=== PATIENT | male | born 1995 | race Hispanic/Latino ===

== ENCOUNTER 2022-10-28 12:15 | Emergency (ER) | payer BC ==
[~2022-10-28] VITALS: Ht 172.7 cm; Wt 174.6 kg
[2022-10-28 12:15] VITALS: BP 182/107
[2022-10-28 12:48] LABS: BASOPHILS % (AUTO) 0.2 % (0.0-5.0); EOSINOPHILS % (AUTO) 1.1 % (0.0-8.0); HEMATOCRIT 43.3 % (42-54); LYMPHOCYTES % (AUTO) 32.8 % (21.0-51.0); MEAN CORPUSCULAR HEMOGLOBIN 28.1 pg (27.0-33.0); MEAN CORPUSCULAR HGB CONC 32.8 g/dL (32.0-36.0); MEAN CORPUSCULAR VOLUME 85.7 fL (79-99); MONOCYTES % (AUTO) 4.1 % (3.0-13.0); NEUTROPHILS % (AUTO) 61.5 % (40.0-77.0); PLATELET COUNT (AUTO) 285 K/uL (130-400); RED BLOOD CELL COUNT(AUTO) 5.05 MIL/uL (4.50-6.20); RED CELL DISTRIBUTION WIDTH 13.5 % (11.0-15.5); WHITE BLOOD COUNT (AUTO) 9.3 K/uL (4.8-10.8)
[2022-10-28 13:02] LABS: ALBUMIN 3.7 g/dL (3.5-5.0); CREATININE 0.9 mg/dL (0.5-1.5); POTASSIUM 3.7 mmol/L (3.5-5.1); TOTAL PROTEIN, SERUM 7.9 g/dL (6.0-8.3)
[2022-10-28 13:16] LABS: B-TYPE NATRIURETIC PEPTIDE 7 pg/mL (0-100)
[2022-10-28] MEDS ORDERED: FAMO-136 PO (15:45)
== END 2022-10-28 16:15 | disposition home or self-care (01) ==
LOC: EDH 12:15
DX: R42 Dizziness and giddiness (principal); K21.9 Gastro-esophageal reflux disease without esophagitis; R03.0 Elevated blood-pressure reading, without diagnosis of hypertension; R73.9 Hyperglycemia, unspecified
CPT/HCPCS: 36415; 71045; 80053; 83880; 84484; 85025; 93005

== ENCOUNTER 2022-10-31 09:55 | Emergency (ER) | payer BC ==
[~2022-10-31] VITALS: Ht 175.3 cm; Wt 170.1 kg
[~2022-10-31 09:55] MED LIST: FAMO-136 PO
[2022-10-31 10:29] LABS: BASOPHILS % (AUTO) 0.2 % (0.0-5.0); HEMATOCRIT 42.9 % (42-54); LYMPHOCYTES % (AUTO) 25.8 % (21.0-51.0); MEAN CORPUSCULAR HEMOGLOBIN 28.6 pg (27.0-33.0); MEAN CORPUSCULAR HGB CONC 33.6 g/dL (32.0-36.0); MEAN CORPUSCULAR VOLUME 85.3 fL (79-99); MONOCYTES % (AUTO) 4.6 % (3.0-13.0); NEUTROPHILS % (AUTO) 68.1 % (40.0-77.0); PLATELET COUNT (AUTO) 286 K/uL (130-400); RED BLOOD CELL COUNT(AUTO) 5.03 MIL/uL (4.50-6.20); RED CELL DISTRIBUTION WIDTH 13.4 % (11.0-15.5); WHITE BLOOD COUNT (AUTO) 8.9 K/uL (4.8-10.8)
[2022-10-31 10:47] LABS: INR 0.93 (0.85-1.15); PROTHROMBIN TIME 10.2 SEC (9.6-11.6)
[2022-10-31 10:48] LABS: PARTIAL THROMBOPLASTIN TIME 29.3 SEC (26.3-35.5)
[2022-10-31 11:30] VITALS: BP 138/73
[2022-10-31] MEDS ORDERED: IOHEXOL-350 75 ML VIAL IV ONE (13:34)
== END 2022-10-31 16:06 | disposition home or self-care (01) ==
LOC: EDH 09:55
DX: R06.09 Other forms of dyspnea (principal); F17.200 Nicotine dependence, unspecified, uncomplicated; Z20.822 Contact with and (suspected) exposure to COVID-19; Z68.43 Body mass index [BMI] 50.0-59.9, adult
CPT/HCPCS: 99285; 93970; 71270; 71045; 87635; 84484; 80048; 85025; 85378; 85610; 85730; 36415; 93005; C9803; Q9967

== ENCOUNTER 2022-11-01 18:37 | Emergency (ER) | payer BC, OTHER ==
[~2022-11-01] VITALS: Ht 175.3 cm; Wt 170.1 kg
[2022-11-01 19:19] VITALS: BP 142/53
== END 2022-11-01 20:06 | disposition left against medical advice (07) ==
LOC: EDH 18:37
DX: R06.02 Shortness of breath (principal); Z53.21 Procedure and treatment not carried out due to patient leaving prior to being seen by health care provider
CPT/HCPCS: 99281

== ENCOUNTER 2023-04-20 18:42 | Emergency (ER) | payer OTHER ==
[~2023-04-20] VITALS: Ht 175.3 cm; Wt 166.9 kg
[2023-04-20 18:45] VITALS: BP 143/88; PULSE 104; RESP 18
[2023-04-20 22:00] LABS: BASOPHILS # (AUTO) 0.02 K/uL (0.00-0.20); BASOPHILS % (AUTO) 0.2 % (0.0-5.0); EOSINOPHILS # (AUTO) 0.04 K/uL (0.00-0.70); EOSINOPHILS % (AUTO) 0.4 % (0.0-8.0); HEMATOCRIT 44.7 % (42-54); IMMATURE GRANULOCYTE ABSOLUTE 0.04 K/uL (0-1); LYMPHOCYTES # (AUTO) 2.7 K/uL (1.0-4.8); LYMPHOCYTES % (AUTO) 24.7 % (21.0-51.0); MEAN CORPUSCULAR HEMOGLOBIN 28.7 pg (27.0-33.0); MEAN CORPUSCULAR HGB CONC 33.3 g/dL (32.0-36.0); MONOCYTES # (AUTO) 0.6 K/uL (0.1-1.0); MONOCYTES % (AUTO) 5.1 % (3.0-13.0); NEUTROPHILS # (AUTO) 7.4 K/uL (1.8-7.7); NEUTROPHILS % (AUTO) 69.2 % (40.0-77.0); PLATELET COUNT (AUTO) 334 K/uL (130-400); RED CELL DISTRIBUTION WIDTH 13.6 % (11.0-15.5); WHITE BLOOD COUNT (AUTO) 10.7 K/uL (4.8-10.8)
[2023-04-20 22:12] LABS: CREATININE 0.8 mg/dL (0.5-1.5); POTASSIUM 3.7 mmol/L (3.5-5.1)
[2023-04-20 22:17] LABS: ALBUMIN 3.8 g/dL (3.5-5.0); BILIRUBIN,TOTAL 0.3 mg/dL (0.2-1.0); TOTAL PROTEIN, SERUM 8.6 g/dL (6.0-8.3)
[2023-04-20] MEDS ORDERED: BUTA-271 PO (22:56)
[2023-04-20 23:05] LABS: ERYTHROCYTE SEDIMENTATION RATE 30 MM/HR (0-15)
== END 2023-04-20 23:02 | disposition home or self-care (01) ==
LOC: EDH 18:42
DX: G44.209 Tension-type headache, unspecified, not intractable (principal); E66.9 Obesity, unspecified; F17.200 Nicotine dependence, unspecified, uncomplicated; Z98.890 Other specified postprocedural states
CPT/HCPCS: 36415; 70450; 80053; 85025; 85651

== ENCOUNTER 2023-05-31 14:28 | Emergency (ER) | payer OTHER ==
[~2023-05-31] VITALS: Ht 172.7 cm; Wt 158.8 kg
[~2023-05-31 14:28] MED LIST changes: +BUTA-271 PO
[2023-05-31 14:36] VITALS: BP 140/88; PULSE 93; RESP 18
[2023-05-31 15:02] LABS: BASOPHILS # (AUTO) 0.02 K/uL (0.00-0.20); BASOPHILS % (AUTO) 0.3 % (0.0-5.0); EOSINOPHILS # (AUTO) 0.06 K/uL (0.00-0.70); EOSINOPHILS % (AUTO) 0.8 % (0.0-8.0); HEMATOCRIT 44.8 % (42-54); IMMATURE GRANULOCYTE ABSOLUTE 0.02 K/uL (0-1); LYMPHOCYTES # (AUTO) 2.2 K/uL (1.0-4.8); LYMPHOCYTES % (AUTO) 27.7 % (21.0-51.0); MEAN CORPUSCULAR HEMOGLOBIN 28.3 pg (27.0-33.0); MEAN CORPUSCULAR HGB CONC 33.5 g/dL (32.0-36.0); MEAN CORPUSCULAR VOLUME 84.5 fL (79-99); MONOCYTES # (AUTO) 0.4 K/uL (0.1-1.0); MONOCYTES % (AUTO) 5.6 % (3.0-13.0); NEUTROPHILS # (AUTO) 5.1 K/uL (1.8-7.7); NEUTROPHILS % (AUTO) 65.3 % (40.0-77.0); PLATELET COUNT (AUTO) 286 K/uL (130-400); RED CELL DISTRIBUTION WIDTH 13.7 % (11.0-15.5); WHITE BLOOD COUNT (AUTO) 7.8 K/uL (4.8-10.8)
[2023-05-31 15:48] LABS: CREATININE 0.9 mg/dL (0.5-1.5); POTASSIUM 3.7 mmol/L (3.5-5.1)
[2023-05-31 15:55] LABS: BILIRUBIN,TOTAL 0.6 mg/dL (0.2-1.0); TOTAL PROTEIN, SERUM 8.5 g/dL (6.0-8.3)
[2023-05-31 17:12] LABS: APPEARANCE,URINE CLEAR (CLEAR); BILIRUBIN,URINE NEGATIVE (NEGATIVE); COLOR,URINE COLORLESS (YELLOW); GLUCOSE, URINE (UA) NEGATIVE (NEGATIVE); KETONES,URINE 5 mg/dL (NEGATIVE); LEUKOCYTE ESTERASE ,URINE NEGATIVE Leu/uL (NEGATIVE); NITRATE,URINE NEGATIVE (NEGATIVE); OCCULT BLOOD,URINE NEGATIVE (NEGATIVE); PH,URINE 5.5 (5.0-8.0); PROTEIN,URINE NEGATIVE (NEGATIVE); UROBILINOGEN,URINE 0.2 mg/dL (0.2-1.0)
[2023-05-31 17:13] LABS: ADD UA MICROSCOPIC NO
[2023-05-31 17:45] LABS: HIV 1&2 ANTIBODY Non-Reactive (Negative); HIV-1 p24 Antigen Non-Reactive (Negative)
[2023-05-31] MEDS ORDERED: NYST5ORA7 PO (17:47)
[2023-05-31] MEDS ORDERED: HYDR-3421 PO (17:47)
== END 2023-05-31 18:51 | disposition home or self-care (01) ==
LOC: EDH 14:28
DX: F41.9 Anxiety disorder, unspecified (principal); B37.0 Candidal stomatitis; K21.9 Gastro-esophageal reflux disease without esophagitis; F17.200 Nicotine dependence, unspecified, uncomplicated
CPT/HCPCS: 36415; 80053; 81003; 85025; 86701; 87390; 93005

== ENCOUNTER 2023-07-02 02:23 | Emergency (ER) | payer BC, OTHER ==
[~2023-07-02] VITALS: Ht 175.3 cm; Wt 156.9 kg
[~2023-07-02 02:23] MED LIST changes: +HYDR-3421 PO; +NYST5ORA7 PO
[2023-07-02 02:24] VITALS: BP 164/92; PULSE 93; RESP 18
== END 2023-07-02 03:33 | disposition left against medical advice (07) ==
LOC: EDH 02:23
DX: R42 Dizziness and giddiness (principal); Z53.21 Procedure and treatment not carried out due to patient leaving prior to being seen by health care provider

== ENCOUNTER 2024-07-28 20:23 | Inpatient (IN) | payer SELFPAY ==
[~2024-07-28] VITALS: Ht 175.3 cm; Wt 161.1 kg
[~2024-07-28 20:23] MED LIST changes: +NYST100033 PO; -NYST5ORA7 PO
--- NOTE | 2024-07-28 20:39 | ERN ---
General Chief Complaint: Upper Extremity Pain/Injury Stated Complaint: C/O PAIN TO ARMS AFTER LIFTING WEIGHTS. Time Seen by MD: 20:25 Source: patient History of Present Illness Initial Comments Patient is a 29-year-old male coming in with body aches. Per patient he does have a history of rhabdomyolysis and was diagnosed that the last year. Patient states that he has been working out intensely incised flowing body aches. Decided to follow up to be evaluated. Pain is localized to the upper extremities. Allergies: Coded Allergies: No Known Allergies (Unverified Allergy, Unknown, 10/31/22) Home Meds Active Scripts Hydroxyzine HCl (Hydroxyzine HCl) 25 Mg Tablet, 25 MG PO TID PRN for BEFORE WOUND VAC, #9 TAB Prov:JACOB PALOMARES V [facility] 05/31/23 Nystatin (Nystatin) 100,000 Unit/Ml Oral.susp, 090450 UNIT PO QID, #150 ML Prov:JACOB PALOMARES V [employer] 05/31/23 Butalb/Acetaminophen/Caffeine (Esgic 50-325-40 mg Tablet) 50 Mg-325 Mg-40 Mg Tablet, 2 EACH PO Q4HPRN PRN for HEADACHE, #20 TAB 2 tablets every 4 hours, maximum 6 tablets daily. Prov:LUCIO WHITFIELD MA[employer] 04/20/23 Famotidine (Pepcid) 20 Mg Tablet, 20 MG PO BIDAC, #30 TAB Prov:CORTEZ BAILON PAC 10/28/22 Past Medical History Past Medical History: No Pertinent History Past Surgical History: None Social History Social History: Smokers, ETOH ROS Dictation CONSTITUTIONAL: No chills, no fever, no weakness, no diaphoresis, malaise. HEAD/FACE: No signs of trauma. EENT: No eye pain, no blurred vision, no tearing, no double vision, no ear pain, no ear discharge, no nose pain, no nasal congestion, no throat pain, no throat swelling, no mouth pain. RESPIRATORY: No cough, no orthopnea, no SOB, no stridor, no wheezing. CARDIOVASCULAR: No chest pain, no edema, no palpitations, no syncope. GASTROINTESTINAL/ABDOMINAL: No abdominal pain, no constipation, no diarrhea, no nausea, no vomiting. GENITOURINARY: No abnormal discharge, no dysuria, no frequent urination, no hematuria. No complaints of pain in the genitals. MUSCULOSKELETAL: No back pain, no gout, no joint pain, no joint swelling, no muscle pain, no muscle stiffness, no neck pain. INTEGUMENTARY: No change in color, no change in hair/nails, no dryness, no lesion, no lumps, no rash. NEUROLOGICAL/PSYCH: No anxiety, not depressed, no emotional problem, no headache, no numbness, no pre-existing deficit, no history of seizures, no tremors, no weakness. HEMATOLOGIC/LYMPHATIC: Not anemic, no history of blood clots, no apparent bleeding, no bruising, glands not swollen. All Systems Negative, Except as Noted. Physical Exam Physical Exam Dictation VITAL SIGNS: Reviewed. GENERAL APPEARANCE: Alert, oriented x3, no acute distress, obese. HEAD AND FACE: Non-traumatic. EYES: PERRL, pink conjunctivas, eyelid no trauma, anterior chamber clear. EARS: Pinnas intact and no signs of trauma or erythema. Ear canals clear and no discharge. TMs no erythema. NOSE: No discharge, no bleeding. OROPHARYNX: Mouth normal, teeth no caries, tongue pink. Pharynx clear, no erythema. Tonsils no exudates, no abscesses noted. Mucous membrane moist. NECK: Supple, non-tender, no thyromegaly, no masses, no JVD, no bruits. BREAST: Deferred. CHEST: No tenderness, no crepitus, no paradoxical movement, no retractions. LUNGS: Clear, well-ventilated, symmetric, no rales, no wheezing, no rhonchi, no stridor, good breath sounds bilaterally. HEART: Regular rate, regular rhythm, no murmur, no gallops. VASCULAR: No peripheral edema. ABDOMEN: Soft, positive bowel sounds, nondistended, no guarding, nontender, no rebound, no masses no hepatomegaly, no splenomegaly, no Davenport's sign, no hernias. RECTAL: Deferred. GENITAL: Deferred. NEUROLOGICAL: Normal speech, gross motor function intact, gross sensory function intact. MUSCULOSKELETAL: Neck nontender, full range of motion, back nontender, full range of motion. EXTREMITIES: Nontender, full range of motion. SKIN: Color pink, dry, no turgor, no rash, no lacerations, no abrasions, no contusions. LYMPHATICS: Deferred. Results Laboratory and Microbiology Lab and Micro Result Laboratory Tests Test 07/28/24 21:07 07/28/24 22:12 07/28/24 23:33 White Blood Count 7.6 K/uL (4.8-10.8) Red Blood Count 5.16 MIL/uL (4.50-6.20) Hemoglobin 14.7 g/dL (14.0-18.0) Hematocrit 43.7 % (42-54) Mean Corpuscular Volume 84.7 fL (79-99) Mean Corpuscular Hemoglobin 28.5 pg (27.0-33.0) Mean Corpuscular Hemoglobin Concent 33.6 g/dL (32.0-36.0) Red Cell Distribution Width 13.8 % (11.0-15.5) Platelet Count 327 K/uL (130-400) Mean Platelet Volume 9.3 fL (7.5-10.5) Immature Granulocyte % (Auto) 0.3 % (0-1) Neutrophils (%) (Auto) 60.9 % (40.0-77.0) Lymphocytes (%) (Auto) 32.3 % (21.0-51.0) Monocytes (%) (Auto) 5.1 % (3.0-13.0) Eosinophils (%) (Auto) 1.3 % (0.0-8.0) Basophils (%) (Auto) 0.1 % (0.0-5.0) Neutrophils # (Auto) 4.6 K/uL (1.8-7.7) Lymphocytes # (Auto) 2.5 K/uL (1.0-4.8) Monocytes # (Auto) 0.4 K/uL (0.1-1.0) Eosinophils # (Auto) 0.10 K/uL (0.00-0.70) Basophils # (Auto) 0.01 K/uL (0.00-0.20) Absolute Immature Granulocyte (auto 0.02 K/uL (0-1) Nucleated Red Blood Cells 0.0 % (0.0-0.19) Sodium Level 141 mmol/L (136-145) Potassium Level 3.9 mmol/L (3.5-5.1) Chloride Level 105 mmol/L (101-111) Carbon Dioxide Level 32 mmol/L (21-32) Blood Urea Nitrogen 10 mg/dL (7-18) Creatinine 1.1 mg/dL (0.5-1.3) Glomerular Filtration Rate Calc 92 mL/min (>90) Random Glucose 110 mg/dL (70-105) H Total Calcium 8.6 mg/dL (8.5-10.1) Total Creatine Kinase 1145 U/L (21-232) *H 1100 U/L (21-232) *H Urine Color LIGHT-YELLOW (YELLOW) Urine Appearance CLEAR (CLEAR) Urine pH 6.0 (5.0-8.0) Urine Specific [place] 1.027 (1.001-1.031) Urine Protein 10 mg/dL (NEGATIVE) H Urine Glucose (UA) NEGATIVE mg/dL (NEGATIVE) Urine Ketones NEGATIVE mg/dL (NEGATIVE) Urine Occult Blood NEGATIVE (NEGATIVE) Urine Nitrate NEGATIVE (NEGATIVE) Urine Bilirubin NEGATIVE mg/dL (NEGATIVE) Urine Urobilinogen 0.2 mg/dL (0.2-1.0) Urine Leukocyte Esterase NEGATIVE Morgan/uL Urine RBC 2-5 /HPF (0-1) H Urine WBC 0-1 /HPF (0-1) Urine Bacteria None /HPF (None Seen) Urine Opiates Screen NEGATIVE (NEGATIVE) Urine Barbiturates Screen NEGATIVE (NEGATIVE) Urine Phencyclidine Screen NEGATIVE (NEGATIVE) Urine Amphetamines Screen NEGATIVE (NEGATIVE) Urine Benzodiazepines Screen NEGATIVE (NEGATIVE) Urine Cocaine Screen NEGATIVE (NEGATIVE) Urine Marijuana (THC) Screen NEGATIVE (NEGATIVE) Labs Reviewed?: Yes MDM MDM: Differential diagnosis: Rhabdomyolysis, elevated CK, dehydration, Rationale: Tests considered and ordered secondary to shared decision making include: labs, ECG and radiology Previous outside records reviewed: Old ER visits. Risk of complication and/or morbidity or mortality of patient management: None Medications-Per medication reconciliation Need for hospitalization: Patient does meet criteria for hospitalization. Need for emergency major/minor surgery: No There are no social concerns with this patient. Prescription drug management Prescriptions will include symptomatic care Patient's prior external medical records from other ER visits were reviewed by me as indicated. Prior testing and results from previous visits were reviewed. Prior tests were taken into account with medical decision making and resource utilization, independent historian/historians were used to obtain complete medical history. I independently interpreted the test that were performed, results were reviewed by me and considered findings on radiology if ordered. Medical management and examination interpretation discussions were had by me with other qualified healthcare professionals as indicated for the patient's care. Patient is a 29-year-old male coming in to be evaluated for body aches. For patient he has been exercising recently and presented with body aches and muscle stiffness. Laboratory workup elevated CK consistent with rhabdomyolysis. Patient will be admitted under the care of Dr. Diego for ongoing management. ED Course Orders Procedure Category Date Status Time Cbc With Differential LAB 07/28/24 Complete 20:27 Basic Metabolic Panel LAB 07/28/24 Complete 20:27 Creatine Kinase, Total LAB 07/28/24 Complete 20:27 0.9%Nacl 1000ml (Ns PHA 07/28/24 Complete 1000ml) 20:30 Urinalysis LAB 07/28/24 Complete W/Microscopic 22:00 Drug Screen Urine LAB 07/28/24 Complete 22:00 0.9%Nacl 1000ml (Ns PHA 07/28/24 Complete 1000ml) 22:30 Creatine Kinase, Total LAB 07/28/24 Complete 22:50 Current Medications Medications (Trade) Dose Ordered Sig/Kristi Route PRN Reason Start Time Stop Time Status Last Admin Dose Admin Sodium Chloride 1,000 ml @ 0 mls/hr ONCE ONCE IV 07/28/24 20:30 07/28/24 20:33 DC 07/28/24 22:18 Sodium Chloride 1,000 ml @ 0 mls/hr ONCE ONCE IV 07/28/24 22:30 07/28/24 22:31 DC 07/28/24 23:03 Vital Signs Date Time Temp Pulse Resp B/P (MAP) Pulse Ox O2 Delivery O2 Flow Rate FiO2 07/28/24 22:10 98.2 78 18 145/87 99 Room Air* 0 21 07/28/24 20:24 98.2 95 20 144/87 96 Room Air Critical Care Note Comments Critical Care Procedure Note Authorized and Performed by: me Total critical care time: Approximately 36 minutes Due to a high probability of clinically significant, life threatening deterioration, the patient required my highest level of preparedness to intervene emergently and I personally spent this critical care time directly and personally managing the patient. This critical care time included obtaining a history; examining the patient; pulse oximetry; ordering and review of studies; arranging urgent treatment with development of a management plan; evaluation of patient's response to treatment; frequent reassessment; and, discussions with other providers. This critical care time was performed to assess and manage the high probability of imminent, life-threatening deterioration that could result in multi-organ failure. It was exclusive of separately billable procedures and treating other patients and teaching time. Please see MDM section and the rest of the note for further information on patient assessment and treatment. DX & DISP Disposition: Inpatient Decision to Admit Time: 00:34 Departure Impression: Primary Impression: Rhabdomyolysis Condition: Stable Referrals: SELF,REFERRAL (PCP) KWAN PERDOMO MD Jul 28, 2024 20:39
[2024-07-28 21:14] LABS: BASOPHILS # (AUTO) 0.01 K/uL (0.00-0.20); BASOPHILS % (AUTO) 0.1 % (0.0-5.0); EOSINOPHILS % (AUTO) 1.3 % (0.0-8.0); HEMATOCRIT 43.7 % (42-54); IMMATURE GRANULOCYTE ABSOLUTE 0.02 K/uL (0-1); LYMPHOCYTES # (AUTO) 2.5 K/uL (1.0-4.8); LYMPHOCYTES % (AUTO) 32.3 % (21.0-51.0); MEAN CORPUSCULAR HEMOGLOBIN 28.5 pg (27.0-33.0); MEAN CORPUSCULAR HGB CONC 33.6 g/dL (32.0-36.0); MEAN CORPUSCULAR VOLUME 84.7 fL (79-99); MONOCYTES # (AUTO) 0.4 K/uL (0.1-1.0); MONOCYTES % (AUTO) 5.1 % (3.0-13.0); NEUTROPHILS # (AUTO) 4.6 K/uL (1.8-7.7); NEUTROPHILS % (AUTO) 60.9 % (40.0-77.0); PLATELET COUNT (AUTO) 327 K/uL (130-400); RED BLOOD CELL COUNT(AUTO) 5.16 MIL/uL (4.50-6.20); RED CELL DISTRIBUTION WIDTH 13.8 % (11.0-15.5); WHITE BLOOD COUNT (AUTO) 7.6 K/uL (4.8-10.8)
[2024-07-28 21:32] LABS: CREATININE 1.1 mg/dL (0.5-1.3); POTASSIUM 3.9 mmol/L (3.5-5.1)
--- NOTE | 2024-07-28 22:05 | NUR ---
ASSUMED PT CARE AT THIS TIME
[2024-07-28] MEDS: 0.9%NACL 1000ML 1,000 ML IV ONE ×2 (22:18→23:03)
[2024-07-28 22:30] LABS: APPEARANCE,URINE CLEAR (CLEAR); BILIRUBIN,URINE NEGATIVE (NEGATIVE); COLOR,URINE LIGHT-YELLOW (YELLOW); GLUCOSE, URINE (UA) NEGATIVE (NEGATIVE); KETONES,URINE NEGATIVE (NEGATIVE); LEUKOCYTE ESTERASE ,URINE NEGATIVE Leu/uL (NEGATIVE); NITRATE,URINE NEGATIVE (NEGATIVE); OCCULT BLOOD,URINE NEGATIVE (NEGATIVE); PROTEIN,URINE 10 mg/dL (NEGATIVE); UROBILINOGEN,URINE 0.2 mg/dL (0.2-1.0)
[2024-07-28 22:31] LABS: MUCUS,URINE RARE LPF (None Seen); WBC,URINE 0-1 /HPF (0-1)
[2024-07-28 22:37] LABS: AMPHET/METH SCREEN,URINE NEGATIVE (NEGATIVE); BARBITURATE SCREEN, URINE NEGATIVE (NEGATIVE); BENZODIAZEPINES SCREEN,URINE NEGATIVE (NEGATIVE); CANNABINOID SCREEN,URINE NEGATIVE (NEGATIVE); COCAINE SCREEN,URINE NEGATIVE (NEGATIVE); OPIATE SCREEN,URINE NEGATIVE (NEGATIVE); PHENCYCLIDINE SCREEN,URINE NEGATIVE (NEGATIVE)
[2024-07-29] MEDS ORDERED: ondanSETRON 4MG TABLET PO PRN (01:00)
[2024-07-29] MEDS: 0.9%NACL 1000ML 1,000 ML IV SCH (01:23)
[2024-07-29 07:36] LABS: CREATININE 0.7 mg/dL (0.5-1.3); POTASSIUM 3.5 mmol/L (3.5-5.1)
--- NOTE | 2024-07-29 07:44 | NUR ---
CK-1244, PRIMARY RN MADE AWARE
--- NOTE | 2024-07-29 11:21 | NUR ---
ELEVATED CK DR ATKINSON NOTIFIED OF CK 1244,CONTINUE WITH N/S 150 ML/HR.
[2024-07-29] MEDS: acetaMINOPHEN 325 MG TAB PO PRN (13:30)
--- NOTE | 2024-07-29 15:00 | NUR ---
DR ATKINSON AT BEDSIDE.
--- NOTE | 2024-07-29 18:41 | NUR ---
PAIN 8/10.PT DECLINED PAINRELIEF.
[2024-07-29] MEDS: traMADol HCL 50 MG TABLET PO PRN (20:31)
[2024-07-30] VITALS (8 sets, daily range): BP systolic 109–146; BP diastolic 58–89; PULSE 71–85; RESP 18–20; TEMP 97.6–98.1; O2SAT 97
--- NOTE | 2024-07-30 02:03 | NUR ---
REPORT GIVEN TO SHANIQUE RASHEED
--- NOTE | 2024-07-30 03:36 | HP ---
DATE OF ADMISSION: 07/28/2024 PRESENTING COMPLAINT: Generalized body weakness and pain. HISTORY OF PRESENT ILLNESS: A 29-year-old male with morbid obesity and rhabdomyolysis presented to hospital with generalized body ache and weakness. The patient had similar symptoms about a year ago and was found to have rhabdomyolysis. The patient claims he has been . In the ER, the patient was found with CPK of 1145. The patient has been started on IV fluid. No fever or chills. Renal function came back normal. No diarrhea, no abdominal pain. PAST MEDICAL HISTORY: * Rhabdomyolysis. * Morbid obesity. PAST SURGICAL HISTORY: None. ALLERGIES: No known drug allergy. HOME MEDICATIONS: None. SOCIAL HISTORY: Positive for chronic tobacco use, no illicit drug use. FAMILY HISTORY: Noncontributory. REVIEW OF SYSTEMS: Greater than 10 systems were reviewed, negative except as documented above. PHYSICAL EXAMINATION: GENERAL: Young male, awake. VITAL SIGNS: Temperature 98.2, pulse 72, respiratory rate 18, BP 136/73. EYES: No icterus. Pupils equal and reactive. HENT: No oral thrush seen. Moist oral mucosa. NECK: Supple, no JVD or thyromegaly. LUNGS: Good air entry. No rales, no rhonchi. CARDIOVASCULAR: S1, S2 regular. No murmur heard. ABDOMEN: Soft, nontender. Bowel sound is present. CENTRAL NERVOUS SYSTEM: Awake, alert and oriented x3. No focal deficits. SKIN: No rashes, no itchiness. LYMPHATIC: No peripheral lymphadenopathy. MUSCULOSKELETAL: No joint swelling, erythema or tenderness. LABORATORY DATA: CPK 1145. WBC 7.6, hemoglobin 14.7, platelets 227. ASSESSMENT: A 29-year-old male presented with body ache. Current problems include: * Rhabdomyolysis. * Morbid obesity. PLAN: * The patient admitted to medical floor. * The patient will be placed on IV fluid. * Tylenol as needed for pain. * Zofran as needed for nausea and vomiting. * Monitor electrolytes. * The patient will be followed up closely. TID: [id number] RECEIPT: [id number]
[2024-07-30 07:32] LABS: CREATININE 0.7 mg/dL (0.5-1.3); POTASSIUM 3.6 mmol/L (3.5-5.1)
--- NOTE | 2024-07-30 07:45 | NUR ---
DCP: HOME Sw visited with pt who states he lives at home with his mother Argelia Lopez [phone]. Pt states he is currently unemployed while is "recovering from anxiety". Pt states he has had a tough time related to his "bad behaviors and choices" but he is now going in the right direction now that he has found God and is on a spiritual journey. "Sherwin is purifying my life". Pt denies need for psych care because he has God in his life. Pt states mother has been supportive emotionally and financially during this time and he hopes to return to work soon. Pt states he is independent of all his daily activities of life, uses no DME or in home care services. PCP is Jeanna Doyle and uses [facility] for rx. Pt denies dc needs and will return home at pa. Addendum: 07/30/24 at 0752 by KEVIN WEVAER SS Amended: Links added.
--- NOTE | 2024-07-30 07:53 | NUR ---
CRITICAL RESULTS LAB CALLED IN REPORTING CRITICAL RESULTS OF CK TOTAL OF 4488. NOTIFIED PRIMARY NURSE REGARDING RESULTS.
--- NOTE | 2024-07-30 13:57 | PN ---
INFECTIOUS DISEASE PROGRESS NOTE Date of Service: Jul 30, 2024 SUBJECTIVE: This is a 29-year-old male patient who was admitted with chief complaint of generalized body weakness and pain. Reported that he had just started working out again by running on the treadmill. On admission to the ER patient was found with a CK level of 1145. Today patient was seen and examined at bedside in room 313. No reports of nausea or vomiting. The CK level went up higher to 4488 this morning. Denying nausea or vomiting. No chest pain. No dyspnea observe. Will increase IV fluids to 200 mL/hour. We will recheck the CK level in a.m. and continue to monitor. PHYSICAL EXAM EYES: Anicteric. Pupils equal and reactive. HENT: No oral thrush seen, moist Oral mucosa. NECK: Supple, no JVD or thyromegaly. LUNGS: Good air entry. No rales, no rhonchi. CARDIOVASCULAR: S1, S2 regular. No murmur heard. ABDOMEN: Soft, non tender, bowel sounds present, no organomegaly. CENTRAL NERVOUS SYSTEM: Awake, alert, oriented x 3. SKIN: No rashes, no swelling. LYMPHATICS: No peripheral lymphadenopathy. MUSCULOSKELETAL: No joint swelling, erythema or tenderness. EXTREMITIES: No cyanosis or clubbing. BACK: No deformity, no pressure ulcer. GENITOURINARY: No dysuria or hematuria. Vital Sign (Last 12 Hours) 07/30/24 07/30/24 07/30/24 07/30/24 02:10 02:15 02:20 04:00 Temp 98.4 97.9 97.5 Pulse 84 72 77 Resp 18 19 18 B/P (MAP) 128/78 136/58 109/60 Pulse Ox 95 97 98 98 O2 Delivery Room Air* Room Air* Room Air Room Air O2 Flow Rate 0 0 FiO2 21 21 07/30/24 07/30/24 08:00 12:00 Temp 97.7 98.1 Pulse 75 71 Resp 18 20 B/P (MAP) 139/89 126/72 Pulse Ox 98 O2 Delivery Room Air Room Air Intake & Output (last 24hrs) 07/29/24 07/29/24 07/30/24 15:00 23:00 07:00 Intake Total 150.0 ml Balance 150.0 ml LABS: Laboratory: Test 07/30/24 06:50 07/28/24 22:12 07/28/24 21:07 Range/Units Sodium Level 139 136-145 mmol/L Potassium Level 3.6 3.5-5.1 mmol/L Chloride Level 106 101-111 mmol/L Carbon Dioxide Level 27 21-32 mmol/L Blood Urea Nitrogen 7 7-18 mg/dL Creatinine 0.7 0.5-1.3 mg/dL Glomerular Filtration Rate Calc 126 >90 mL/min Random Glucose 88 70-105 mg/dL Total Calcium 8.1 L 8.5-10.1 mg/dL Total Creatine Kinase 4488 #*H 21-232 U/L Urine Color LIGHT-YELLOW YELLOW Urine Appearance CLEAR CLEAR Urine pH 6.0 5.0-8.0 Urine Specific [place] 1.027 1.001-1.031 Urine Protein 10 H NEGATIVE mg/dL Urine Glucose (UA) NEGATIVE NEGATIVE mg/dL Urine Ketones NEGATIVE NEGATIVE mg/dL Urine Occult Blood NEGATIVE NEGATIVE Urine Nitrate NEGATIVE NEGATIVE Urine Bilirubin NEGATIVE NEGATIVE mg/dL Urine Urobilinogen 0.2 0.2-1.0 mg/dL Urine Leukocyte Esterase NEGATIVE NEGATIVE Morgan/uL Urine RBC 2-5 H 0-1 /HPF Urine WBC 0-1 0-1 /HPF Urine Bacteria None None Seen /HPF Urine Opiates Screen NEGATIVE NEGATIVE Urine Barbiturates Screen NEGATIVE NEGATIVE Urine Phencyclidine Screen NEGATIVE NEGATIVE Urine Amphetamines Screen NEGATIVE NEGATIVE Urine Benzodiazepines Screen NEGATIVE NEGATIVE Urine Cocaine Screen NEGATIVE NEGATIVE Urine Marijuana (THC) Screen NEGATIVE NEGATIVE White Blood Count 7.6 4.8-10.8 K/uL Red Blood Count 5.16 4.50-6.20 MIL/uL Hemoglobin 14.7 14.0-18.0 g/dL Hematocrit 43.7 42-54 % Mean Corpuscular Volume 84.7 79-99 fL Mean Corpuscular Hemoglobin 28.5 27.0-33.0 pg Mean Corpuscular Hemoglobin Concent 33.6 32.0-36.0 g/dL Red Cell Distribution Width 13.8 11.0-15.5 % Platelet Count 327 130-400 K/uL Mean Platelet Volume 9.3 7.5-10.5 fL Immature Granulocyte % (Auto) 0.3 0-1 % Neutrophils (%) (Auto) 60.9 40.0-77.0 % Lymphocytes (%) (Auto) 32.3 21.0-51.0 % Monocytes (%) (Auto) 5.1 3.0-13.0 % Eosinophils (%) (Auto) 1.3 0.0-8.0 % Basophils (%) (Auto) 0.1 0.0-5.0 % Neutrophils # (Auto) 4.6 1.8-7.7 K/uL Lymphocytes # (Auto) 2.5 1.0-4.8 K/uL Monocytes # (Auto) 0.4 0.1-1.0 K/uL Eosinophils # (Auto) 0.10 0.00-0.70 K/uL Basophils # (Auto) 0.01 0.00-0.20 K/uL Absolute Immature Granulocyte (auto 0.02 0-1 K/uL Nucleated Red Blood Cells 0.0 0.0-0.19 % ASSESSMENT: Rhabdomyolysis. Morbid obesity. PLAN: Increase IV fluids to 200 mL/hour. Recheck CPK level in AM. Continue pain management. Continue antiemetics. We will monitor electrolytes. This case was reviewed and discussed with my supervising physician and the above assessment and plan was formulated and agreed upon. ATTESTATION BY PHYSICIAN I have seen and examined the patient. I reviewed the documentation, medical decision making, and treatment plan as noted by the mid-level provider above. I agree with the findings and plan of care. DEVIN ATKINSON MD, [facility] Jul 30, 2024 13:57
[2024-07-30] MEDS: morPHINE 2 MG SYG IVP PRN (21:11)
[2024-07-31] VITALS (7 sets, daily range): BP systolic 114–150; BP diastolic 70–95; PULSE 74–90; RESP 19–20; TEMP 97.9–98.2; O2SAT 96–97
[2024-07-31 05:35] LABS: BASOPHILS # (AUTO) 0.02 K/uL (0.00-0.20); BASOPHILS % (AUTO) 0.3 % (0.0-5.0); EOSINOPHILS # (AUTO) 0.17 K/uL (0.00-0.70); EOSINOPHILS % (AUTO) 2.1 % (0.0-8.0); HEMATOCRIT 39.2 % (42-54); IMMATURE GRANULOCYTE ABSOLUTE 0.04 K/uL (0-1); LYMPHOCYTES # (AUTO) 2.8 K/uL (1.0-4.8); LYMPHOCYTES % (AUTO) 35.5 % (21.0-51.0); MEAN CORPUSCULAR HEMOGLOBIN 28.7 pg (27.0-33.0); MEAN CORPUSCULAR HGB CONC 34.2 g/dL (32.0-36.0); MEAN CORPUSCULAR VOLUME 83.9 fL (79-99); MONOCYTES # (AUTO) 0.5 K/uL (0.1-1.0); MONOCYTES % (AUTO) 5.6 % (3.0-13.0); NEUTROPHILS # (AUTO) 4.5 K/uL (1.8-7.7); PLATELET COUNT (AUTO) 329 K/uL (130-400); RED BLOOD CELL COUNT(AUTO) 4.67 MIL/uL (4.50-6.20); RED CELL DISTRIBUTION WIDTH 14.2 % (11.0-15.5)
[2024-07-31 06:26] LABS: CREATININE 0.7 mg/dL (0.5-1.3); MAGNESIUM 1.8 mg/dL (1.80-2.40); POTASSIUM 3.5 mmol/L (3.5-5.1)
[2024-08-01] VITALS (7 sets, daily range): BP systolic 130–156; BP diastolic 65–96; PULSE 55–94; RESP 16–20; TEMP 97.8–98.4; O2SAT 97–98
[2024-08-01 05:34] LABS: CREATININE 0.7 mg/dL (0.5-1.3); POTASSIUM 3.5 mmol/L (3.5-5.1)
--- NOTE | 2024-08-01 10:55 | PN ---
INFECTIOUS DISEASE PROGRESS NOTE Date of Service: Aug 01, 2024 SUBJECTIVE: This is a 29-year-old male patient who was admitted with chief complaint of generalized body weakness and pain. Reported that he had just started working out again by running on the treadmill. On admission to the ER patient was found with a CK level of 1145and was started on IV fluids. Patient was seen and examined at bedside in room 313. Patient is awake, alert and oriented x 3. This morning the CK level is down to 4343 from 5175 yesterday. Patient continues on NS at 200 mL/hour. Denying chest pain. No episodes of emesis reported. We will continue to monitor the CK level. PHYSICAL EXAM EYES: Anicteric. Pupils equal and reactive. HENT: No oral thrush seen, moist Oral mucosa. NECK: Supple, no JVD or thyromegaly. LUNGS: Good air entry. No rales, no rhonchi. CARDIOVASCULAR: S1, S2 regular. No murmur heard. ABDOMEN: Soft, non tender, bowel sounds present, no organomegaly. CENTRAL NERVOUS SYSTEM: Awake, alert, oriented x 3. SKIN: No rashes, no swelling. LYMPHATICS: No peripheral lymphadenopathy. MUSCULOSKELETAL: No joint swelling, erythema or tenderness. EXTREMITIES: No cyanosis or clubbing. Generalized weakness POA. BACK: No deformity, no pressure ulcer. GENITOURINARY: No dysuria or hematuria. Vital Sign (Last 12 Hours) 08/01/24 08/01/24 08/01/24 08/01/24 00:00 04:00 08:00 08:00 Temp 98.2 98.4 98.2 Pulse 94 83 83 Resp 20 16 19 B/P (MAP) 136/96 141/79 142/88 Pulse Ox 97 95 95 97 O2 Delivery Room Air Room Air Room Air Room Air* O2 Flow Rate 0 FiO2 21 Intake & Output (last 24hrs) 07/31/24 07/31/24 08/01/24 15:00 23:00 07:00 Intake Total 900 ml Balance 900 ml LABS: Laboratory: Test 08/01/24 04:52 07/31/24 04:44 Range/Units Sodium Level 140 136-145 mmol/L Potassium Level 3.5 3.5-5.1 mmol/L Chloride Level 105 101-111 mmol/L Carbon Dioxide Level 26 21-32 mmol/L Blood Urea Nitrogen 10 7-18 mg/dL Creatinine 0.7 0.5-1.3 mg/dL Glomerular Filtration Rate Calc 126 >90 mL/min Random Glucose 95 70-105 mg/dL Total Calcium 8.6 8.5-10.1 mg/dL Total Creatine Kinase 4343 *H 21-232 U/L White Blood Count 8.0 4.8-10.8 K/uL Red Blood Count 4.67 4.50-6.20 MIL/uL Hemoglobin 13.4 L 14.0-18.0 g/dL Hematocrit 39.2 L 42-54 % Mean Corpuscular Volume 83.9 79-99 fL Mean Corpuscular Hemoglobin 28.7 27.0-33.0 pg Mean Corpuscular Hemoglobin Concent 34.2 32.0-36.0 g/dL Red Cell Distribution Width 14.2 11.0-15.5 % Platelet Count 329 130-400 K/uL Mean Platelet Volume 9.8 7.5-10.5 fL Immature Granulocyte % (Auto) 0.5 0-1 % Neutrophils (%) (Auto) 56.0 40.0-77.0 % Lymphocytes (%) (Auto) 35.5 21.0-51.0 % Monocytes (%) (Auto) 5.6 3.0-13.0 % Eosinophils (%) (Auto) 2.1 0.0-8.0 % Basophils (%) (Auto) 0.3 0.0-5.0 % Neutrophils # (Auto) 4.5 1.8-7.7 K/uL Lymphocytes # (Auto) 2.8 1.0-4.8 K/uL Monocytes # (Auto) 0.5 0.1-1.0 K/uL Eosinophils # (Auto) 0.17 0.00-0.70 K/uL Basophils # (Auto) 0.02 0.00-0.20 K/uL Absolute Immature Granulocyte (auto 0.04 0-1 K/uL Nucleated Red Blood Cells 0.0 0.0-0.19 % Magnesium Level 1.80 1.80-2.40 mg/dL ASSESSMENT: Rhabdomyolysis. Morbid obesity. PLAN: Increase IV fluids to 200 mL/hour. Recheck CPK level in AM. Continue pain management. Continue antiemetics. We will monitor electrolytes. This case was reviewed and discussed with my supervising physician and the above assessment and plan was formulated and agreed upon. ATTESTATION BY PHYSICIAN I have seen and examined the patient. I reviewed the documentation, medical decision making, and treatment plan as noted by the mid-level provider above. I agree with the findings and plan of care. DEVIN ATKINSON MD, [facility] Aug 01, 2024 10:55
[2024-08-02] VITALS (8 sets, daily range): BP systolic 149–164; BP diastolic 78–94; PULSE 80–92; RESP 16–20; TEMP 97.9–98.4; O2SAT 96–97
[2024-08-02 05:15] LABS: BASOPHILS # (AUTO) 0.01 K/uL (0.00-0.20); BASOPHILS % (AUTO) 0.1 % (0.0-5.0); EOSINOPHILS # (AUTO) 0.24 K/uL (0.00-0.70); EOSINOPHILS % (AUTO) 2.9 % (0.0-8.0); HEMATOCRIT 39.5 % (42-54); IMMATURE GRANULOCYTE ABSOLUTE 0.02 K/uL (0-1); LYMPHOCYTES # (AUTO) 2.5 K/uL (1.0-4.8); LYMPHOCYTES % (AUTO) 30.4 % (21.0-51.0); MEAN CORPUSCULAR HEMOGLOBIN 28.6 pg (27.0-33.0); MEAN CORPUSCULAR HGB CONC 33.7 g/dL (32.0-36.0); MEAN CORPUSCULAR VOLUME 84.9 fL (79-99); MONOCYTES # (AUTO) 0.5 K/uL (0.1-1.0); MONOCYTES % (AUTO) 6.1 % (3.0-13.0); NEUTROPHILS % (AUTO) 60.3 % (40.0-77.0); PLATELET COUNT (AUTO) 301 K/uL (130-400); RED BLOOD CELL COUNT(AUTO) 4.65 MIL/uL (4.50-6.20); RED CELL DISTRIBUTION WIDTH 14.1 % (11.0-15.5); WHITE BLOOD COUNT (AUTO) 8.3 K/uL (4.8-10.8)
[2024-08-02 05:57] LABS: CREATININE 0.7 mg/dL (0.5-1.3); MAGNESIUM 1.6 mg/dL (1.80-2.40); POTASSIUM 3.3 mmol/L (3.5-5.1)
--- NOTE | 2024-08-02 16:42 | PN ---
INFECTIOUS DISEASE PROGRESS NOTE Date of Service: Aug 02, 2024 SUBJECTIVE: This is a 29-year-old male patient who was admitted for chief complaint of generalized body weakness and pain. Reported that he had just started working out again by running on the treadmill. On admission to the ER patient was found with a CK level of 1145and was started on IV fluids. Today patient was seen and examined at bedside in room 313. Patient ambulates in his room without difficulty. The CK level has trended down to 2130 from 4343 yesterday. Patient continues on NS at 200 mL/hour. No coughing episodes observe. No edema. Denying chest pain. We will repeat CK level in a.m.. PHYSICAL EXAM EYES: Anicteric. Pupils equal and reactive. HENT: No oral thrush seen, moist Oral mucosa. NECK: Supple, no JVD or thyromegaly. LUNGS: Good air entry. No rales, no rhonchi. CARDIOVASCULAR: S1, S2 regular. No murmur heard. ABDOMEN: Soft, non tender, bowel sounds present, no organomegaly. CENTRAL NERVOUS SYSTEM: Awake, alert, oriented x 3. SKIN: No rashes, no swelling. LYMPHATICS: No peripheral lymphadenopathy. MUSCULOSKELETAL: No joint swelling, erythema or tenderness. EXTREMITIES: No cyanosis or clubbing. Generalized weakness POA. BACK: No deformity, no pressure ulcer. GENITOURINARY: No dysuria or hematuria. Vital Sign (Last 12 Hours) 08/02/24 08/02/24 08/02/24 07:26 11:28 16:07 Temp 98.4 97.9 98.1 Pulse 89 80 89 Resp 19 19 19 B/P (MAP) 157/86 153/80 154/79 Pulse Ox 98 97 98 O2 Delivery Room Air Room Air Room Air Intake & Output (last 24hrs) 08/01/24 08/01/24 08/02/24 15:00 23:00 07:00 Intake Total 800 ml Balance 800 ml LABS: Laboratory: Test 08/02/24 04:56 Range/Units White Blood Count 8.3 4.8-10.8 K/uL Red Blood Count 4.65 4.50-6.20 MIL/uL Hemoglobin 13.3 L 14.0-18.0 g/dL Hematocrit 39.5 L 42-54 % Mean Corpuscular Volume 84.9 79-99 fL Mean Corpuscular Hemoglobin 28.6 27.0-33.0 pg Mean Corpuscular Hemoglobin Concent 33.7 32.0-36.0 g/dL Red Cell Distribution Width 14.1 11.0-15.5 % Platelet Count 301 130-400 K/uL Mean Platelet Volume 9.5 7.5-10.5 fL Immature Granulocyte % (Auto) 0.2 0-1 % Neutrophils (%) (Auto) 60.3 40.0-77.0 % Lymphocytes (%) (Auto) 30.4 21.0-51.0 % Monocytes (%) (Auto) 6.1 3.0-13.0 % Eosinophils (%) (Auto) 2.9 0.0-8.0 % Basophils (%) (Auto) 0.1 0.0-5.0 % Neutrophils # (Auto) 5.0 1.8-7.7 K/uL Lymphocytes # (Auto) 2.5 1.0-4.8 K/uL Monocytes # (Auto) 0.5 0.1-1.0 K/uL Eosinophils # (Auto) 0.24 0.00-0.70 K/uL Basophils # (Auto) 0.01 0.00-0.20 K/uL Absolute Immature Granulocyte (auto 0.02 0-1 K/uL Nucleated Red Blood Cells 0.0 0.0-0.19 % Sodium Level 140 136-145 mmol/L Potassium Level 3.3 L 3.5-5.1 mmol/L Chloride Level 105 101-111 mmol/L Carbon Dioxide Level 28 21-32 mmol/L Blood Urea Nitrogen 11 7-18 mg/dL Creatinine 0.7 0.5-1.3 mg/dL Glomerular Filtration Rate Calc 126 >90 mL/min Random Glucose 98 70-105 mg/dL Total Calcium 8.6 8.5-10.1 mg/dL Magnesium Level 1.60 L 1.80-2.40 mg/dL Total Creatine Kinase 2130 #*H 21-232 U/L ASSESSMENT: Rhabdomyolysis. Morbid obesity. PLAN: Continue IV fluids at 200 mL/hour. Recheck CPK level in AM. Continue pain management. Continue antiemetics. We will monitor electrolytes. This case was reviewed and discussed with my supervising physician and the above assessment and plan was formulated and agreed upon. ATTESTATION BY PHYSICIAN I have seen and examined the patient. I reviewed the documentation, medical decision making, and treatment plan as noted by the mid-level provider above. I agree with the findings and plan of care. DEVIN ATKINSON MD, [facility] Aug 02, 2024 16:42
[2024-08-02] MEDS ORDERED: PoTASSium chloRIDE 20MEQ ER 20 MEQ ERTAB PO PRN (19:30)
[2024-08-02] MEDS ORDERED: PoTASSium chloRIDE 20MEQ/100ML 100 ML IV PRN (19:30)
[2024-08-03] VITALS: BP 146/80; PULSE 88; RESP 17; TEMP 98.1
[2024-08-03 04:00] VITALS: BP 148/81; PULSE 95; RESP 16; TEMP 98
[2024-08-03 05:10] LABS: BASOPHILS # (AUTO) 0.03 K/uL (0.00-0.20); BASOPHILS % (AUTO) 0.4 % (0.0-5.0); EOSINOPHILS % (AUTO) 2.5 % (0.0-8.0); HEMATOCRIT 40.4 % (42-54); IMMATURE GRANULOCYTE ABSOLUTE 0.03 K/uL (0-1); LYMPHOCYTES # (AUTO) 2.8 K/uL (1.0-4.8); LYMPHOCYTES % (AUTO) 34.8 % (21.0-51.0); MEAN CORPUSCULAR HEMOGLOBIN 29.2 pg (27.0-33.0); MEAN CORPUSCULAR HGB CONC 34.2 g/dL (32.0-36.0); MEAN CORPUSCULAR VOLUME 85.4 fL (79-99); MONOCYTES # (AUTO) 0.5 K/uL (0.1-1.0); MONOCYTES % (AUTO) 5.7 % (3.0-13.0); NEUTROPHILS # (AUTO) 4.5 K/uL (1.8-7.7); NEUTROPHILS % (AUTO) 56.2 % (40.0-77.0); PLATELET COUNT (AUTO) 287 K/uL (130-400); RED BLOOD CELL COUNT(AUTO) 4.73 MIL/uL (4.50-6.20); RED CELL DISTRIBUTION WIDTH 13.8 % (11.0-15.5); WHITE BLOOD COUNT (AUTO) 7.9 K/uL (4.8-10.8)
[2024-08-03 05:50] LABS: CREATININE 0.7 mg/dL (0.5-1.3); MAGNESIUM 1.5 mg/dL (1.80-2.40); POTASSIUM 3.5 mmol/L (3.5-5.1)
[2024-08-03 08:00] VITALS: BP 128/77; PULSE 76; RESP 18; TEMP 98
[2024-08-03 10:45] VITALS: O2SAT 97
[2024-08-03] MEDS: PoTASSium chl 10% ELIXIR 20MEQ 20 MEQ/15 ML UDCUP PO PRN (10:45)
[2024-08-03] MEDS: MAGNESIUM 2GM PREMIX 50ML 50 ML IV SCH (10:46)
[2024-08-03 12:00] VITALS: BP 159/96; PULSE 88; RESP 18
--- NOTE | 2024-08-03 15:51 | DS ---
Discharge Summary Hospital Course FINAL DISCHARGE DIAGNOSIS: Rhabdomyolysis. Morbid obesity. PLAN: Discharge patient to home today. Continue same home medications. Follow up with PCP in 3-5 days. This case was reviewed and discussed with my supervising physician and the above assessment and plan was formulated and agreed upon. ATTESTATION BY PHYSICIAN I have seen and examined the patient. I reviewed the documentation, medical decision making, and treatment plan as noted by the mid-level provider above. I agree with the findings and plan of care. DEVIN ATKINSON MD, [facility] Aug 03, 2024 15:51
[2024-08-03 16:00] VITALS: BP 114/73; PULSE 73; RESP 18; TEMP 97.8
== END 2024-08-03 17:05 | disposition home or self-care (01) | DRG 558 ==
LOC: EDH 20:23 → OBSVTOIN 20:24 → EDHIP 20:24 → 3BH 07-30 01:30 → 3CH 07-30 02:09
PROVIDERS: ADMIT Internal Medicine Infectious Disease; ATTEND Internal Medicine Infectious Disease
DX: M62.82 Rhabdomyolysis (principal); Z68.43 Body mass index [BMI] 50.0-59.9, adult; E66.01 Morbid (severe) obesity due to excess calories; Z72.0 Tobacco use
CPT/HCPCS: 36415; 80048; 80305; 81001; 82550; 83735; 85025; 96360; 99291; G0378; J2270; J3475; J7030